=== PATIENT | female | born 1960 | race Caucasian/White ===

== ENCOUNTER 2020-02-05 15:49 | Outpatient (CLI) | payer OTHER, SELFPAY ==
--- NOTE | ~2020-02-05 | XR_ITS ---
EXAMINATION: XR chest 2V DATE: 02/05/2020 16:27 INDICATION: Cough and wheezing and shortness of breath. TECHNIQUE: Frontal and lateral views of the chest were obtained. COMPARISON: Chest 2 views 07/08/17 FINDINGS: The lungs are hyperexpanded. There is scarring at the lung apices. No pleural effusion or p neumothorax. The heart size is normal. IMPRESSION: 1. Chronic scarring at the lung apices. 2. Hyperexpanded lungs, consistent with chronic obstructive pulmonary disease. Reviewed, dictated and finalized at location B. GER APPLICATION
[2020-02-06 14:53] LABS: SARS-CoV-2 RNA PCR Negative
== END 2020-02-05 15:50 | disposition home or self-care (01) ==
LOC: CHSLAB 15:54
PROVIDERS: PCP Internal Medicine; Visit Provider Internal Medicine
DX: R05 Cough (principal); R06.02 Shortness of breath; R06.2 Wheezing; Z20.828 Contact with and (suspected) exposure to other viral communicable diseases
CPT/HCPCS: 71046; 87635; C9803; U0003

== ENCOUNTER 2022-02-18 21:36 | Emergency (ER) | payer OTHER, SELFPAY ==
[2022-02-18] VITALS (8 sets, daily range): BP systolic 109–174; BP diastolic 64–83; PULSE 80–89; RESP 20–30; TEMP 36.6–36.8; O2SAT 87–98
--- NOTE | ~2022-02-18 | XR_ITS ---
EXAMINATION: XR chest 1V portable Exam Date/Time: 02/18/2022 21:50 ENDORSEMENT CLERK HISTORY: sob AFTER MULCHING LEAVES Comparison: 02/05/2020, 07/08/2017, 05/13/2011. RESULT: Lines, tubes, and devices: None. Lungs and pleura: No focal consolidation. No pneumothorax. Biapical pleural scarring, with hilar ret raction. Emphysematous change. Cardiomediastinal silhouette: Stable. Other: No acute osseous or upper abdominal finding. IMPRESSION: No acute cardiopulmonary process. Reviewed, dictated and finalized at location K. RSEMENT CLERK
--- NOTE | 2022-02-18 21:46 | ECG_ITS ---
Measurements Intervals [place] Rate: 83 P: 76 WY: 143 QRS: 80 QRSD: 80 T: 67 QT: 365 QTc: 429 Interpretive Statements SINUS RHYTHM BASELINE ARTIFACT- I, II, III, AVR, AVL, AVF, V1-V6 NORMAL ECG NO PREVIOUS ECG AVAILABLE FOR COMPARISON Electronically Signed On 02-19-2022 8:43:51 TECHNOLOGY APPLICATIONS TEACHER by Ranjit Maier D.O.
--- NOTE | 2022-02-18 21:46 | ED.SOB ---
HPI - SOB/Dyspnea General Chief Complaint: Shortness of Breath/Dyspnea Stated Complaint: trouble breathing Time Seen by Provider: 02/18/22 21:42 Source: patient Mode of arrival: ambulatory History of Present Illness HPI Narrative: 61-year-old female, smoker, intermittent bronchospasm. presents to the ER with -- shortness of breath for the past 2 days. She raked leaves 4 days ago. She had a similar episode of shortness of breath after raking leaves few years ago. Received albuterol which she never used after the acute episode. -- Nonproductive cough. -- hypoxic on presentation with an oxygen saturation 87% on room air No fever or chest pain. MD elicited complaint: shortness of breath and cough Pertinent past history: asthma Onset (ago): day(s) ( started 2 days ago) Context: allergen exposure Timing: constant Severity: severe Exacerbating factors: lying flat Relieving factors: oxygen and rest Associated symptoms: denies other symptoms Treatment prior to arrival: none Related Data Home oxygen amount: none Allergies Allergy/AdvReac Type Severity Reaction Status Date / Time Iodinated Contrast Media Allergy Unknown Verified 02/18/22 21:50 Review of Systems Review of Systems: All systems reviewed & are unremarkable except as noted in HPI and below Constitutional: Constitutional: Reports as per HPI and Reports no additional constitutional complaints Eyes: Eyes: Reports as per HPI and Reports no additional eye complaints ENT: Reports system reviewed and no additional complaints, except as documented and Reports as per HPI Cardiovascular: Cardiovascular: Reports as per HPI and Reports no additional cardiovascular complaints Respiratory: Respiratory: Reports as per HPI, Reports no additional respiratory complaints, Reports cough, Reports dyspnea and Reports wheezing Gastrointestinal: Gastrointestinal: Reports as per HPI and Reports no additional gastrointestinal complaints Genitourinary: Genitourinary: Reports no additional female genitourinary complaints and Reports as per HPI Musculoskeletal: Musculoskeletal: Reports no additional musculoskeletal complaints and Reports as per HPI Integumentary/Breasts: Skin/Breast: Reports system reviewed and no additional complaints, except as docu and Reports as per HPI Neurologic: Reports system reviewed and no additional complaints, except as documented and Reports as per HPI Psychiatric: Psychiatric: Reports no additional psychiatric complaints and Reports as per HPI Endocrine: Endocrine: Reports no additional endocrine complaints and Reports as per HPI Hematologic/Lymphatic: Hematologic/Lymphatic: Reports no additional hematologic/lymphatic complaints and Reports as per HPI Allergic/Immunologic: Allergic/Immunologic: Reports no additional allergic/immunologic complaints and Reports as per HPI Exam Const: General: no acute distress ( in acute respiratory distress.) and ill appearing Nutritional Appearance: thin Limitations: no limitations HENMT: Head: normal to inspection Ears: external ears normal Face/Nose/Sinus: Normal external nose present Face and sinus: normal facial exam Mouth: Yes Normal oral and palatal mucosa present Throat: posterior oropharynx normal Eyes: Conjunctivae: conjunctivae normal Pupils: Equal, round and reactive pupils present EOM: EOMs intact bilaterally Direct Ophthalmoscopy: no photophobia Neck: Neck: normal visual inspection, no lymphadenopathy and no meningeal signs Chest: Other: intercostal retractions Resp: Effort & Inspection: labored and retractions Auscultation: wheezes and diminished lung sounds Cardio: Rate: tachycardic Rhythm: regular rhythm GI: GI Palp: Yes Soft to palpation Auscultation: normal bowel sounds Rectal Exam: normal sphincter tone : General: Yes no CVA tenderness Back/Spine/Pelvis: Back: no CVA tenderness Skin: General skin exam: normal color Rashes: no rashes Wounds: no wounds Neuro: General
[2022-02-18] MEDS: IPRATROPIUM 0.5 MG/ALBUTEROL SULFATE 2.5 MG AMPUL.NEB 3 ML (21:50)
[2022-02-18] MEDS: methylPREDNISolone SOD SUCC 125 MG VIAL IV PUSH (22:01)
[2022-02-18 22:09] LABS: Basophils Absolute Auto 0.12 K/mm3 (0.00-0.10); Basophils Percent Auto 1.3 % (0.0-1.0); Eosinophils Absolute Auto 0.43 K/mm3 (0.02-0.50); Eosinophils Percent Auto 4.7 % (1.0-6.0); Hemoglobin 12.3 g/dL (12.0-15.0); Immature Granulocyte Absolute 0.03 K/mm3 (0.00-0.00); Immature Granulocyte Percent A 0.3 % (0.0-0.0); Lymphocytes Absolute Auto 1.55 K/mm3 (1.10-4.50); Lymphocytes Percent Auto 17.1 % (18.0-42.0); Mean Corpuscular HGB Conc 33.2 g/dL (32.0-36.0); Mean Corpuscular Hemoglobin 31.1 pg (27.0-31.0); Mean Corpuscular Volume 93.7 fL (78.0-102.0); Mean Platelet Volume 9.3 fl (9.2-11.8); Monocytes Absolute Auto 0.77 K/mm3 (0.10-0.90); Monocytes Percent Auto 8.5 % (2.0-11.0); Neutrophils Absolute Auto 6.2 K/mm3 (1.7-7.2); Neutrophils Percent Auto 68.1 % (50.0-70.0); Platelet Count Result 332 K/mm3 (150-420); Red Blood Count 3.95 M/mm3 (4.20-5.40); Red Cell Distribution Width 12.7 % (11.6-14.4); White Blood Count 9.1 K/mm3 (4.8-10.8)
[2022-02-18 22:24] LABS: INR 0.9; Partial Thromboplastin Time 27.3 SEC (23.90-30.70)
[2022-02-18 22:30] LABS: Alanine Aminotransferase 23 U/L (14-59); Albumin Level 3.9 g/dL (3.4-5.0); Alkaline Phosphatase 82 U/L (46-116); Anion Gap 11 mmol/L (8-16); Aspartate Amino Transferase 26 U/L (15-37); Bilirubin,Total 0.3 mg/dL (0.00-1.00); Blood Urea Nitrogen 13 mg/dL (7-18); Carbon Dioxide 27 mmol/L (21-32); Chloride 103 mmol/L (98-108); Estimated CRCL calculation 41 ml/min; Estimated Glomerular Filt Rate 55; Glucose 112 mg/dL (70-99); NT Pro B Type Natriuretic Pept 251 pg/mL (0-125); Osmolality Calculated 293 mOsm/kg (285-295); Potassium 4.1 mmol/L (3.5-5.1); Sodium 141 mmol/L (136-145); Total Protein 7.5 g/dL (6.4-8.2); Troponin I 4.4 ng/L (0.00-60.4)
[2022-02-18 22:48] LABS: Influenza A QL RT-PCR Negative (Negative); Influenza B QL RT-PCR Negative (Negative); SARS-CoV-2 RNA PCR Negative (Negative)
[2022-02-18 22:49] LABS: RSV RNA, RT-PCR Negative (Negative)
[2022-02-18] MEDS: AZITHROMYCIN 250 MG TABLET 500 MG PO (23:04)
[2022-02-18] MEDS: ALBUTEROL SULFATE (*SP) INHALER 2 PUFF INHALATION (23:10)
[2022-02-18] MEDS: IPRATROPIUM 0.5 MG/ALBUTEROL SULFATE 2.5 MG AMPUL.NEB 3 ML INHALATION (23:12)
--- NOTE | 2022-02-19 08:51 | PC.NURSE ---
patient called and her pharmacy is closed [facility] store is not, they were confused last night when she told rn where to send prescriptions. [facility] called [facility] [place] and the pharmacy is open today, RN called in prescriptions and talked with [facility].
== END 2022-02-18 23:22 | disposition home or self-care (01) ==
PROVIDERS: Emergency Provider Internal Medicine Critical Care Medicine; PCP Internal Medicine
DX: J20.9 Acute bronchitis, unspecified (principal); Z20.822 Contact with and (suspected) exposure to COVID-19
CPT/HCPCS: 36415; 71045; 80053; 83880; 84484; 85025; 85610; 85730; 87637; 93005; 94640; 96374; 99284; A9270; J2930

== ENCOUNTER 2022-07-21 05:58 | Emergency (ER) | payer OTHER, SELFPAY ==
[2022-07-21 06:00] VITALS: BP 168/55; PULSE 113; RESP 18; TEMP 37; O2SAT 95
--- NOTE | 2022-07-21 06:24 | ED.ANIMALBIT ---
HPI - Animal Bite General Chief Complaint: Animal Bite Stated Complaint: animal bite History of Present Illness HPI narrative: Pt was feeding wildlife this morning and startled a raccoon and it bit her in the left leg. Pt unsure of last tetanus. Pt denies other injury. Related Data Allergies Allergy/AdvReac Type Severity Reaction Status Date / Time Iodinated Contrast Media Allergy Unknown Verified 02/18/22 21:50 Review of Systems Review of Systems: All systems reviewed & are unremarkable except as noted in HPI and below Exam Const: General: healthy appearing and no acute distress Nutritional Appearance: well nourished Orientation/consciousness: patient oriented x3 Limitations: no limitations Eyes: Pupils: Equal, round and reactive pupils present EOM: EOMs intact bilaterally Neck: Neck: normal visual inspection and no lymphadenopathy Skin: Other: small abrasion or puncture wound to left casarez Neuro: General: patient oriented x3, moves all extremities and no focal motor deficits Cranial nerves: Yes Nystagmus not present Speech: normal speech Extrem: General: normal to inspection and no clubbing, cyanosis or edema Psych: Mental Status: mental status grossly normal Affect: normal affect Attitude: cooperative Course Vital Signs Vital signs: Vital Signs Temperature 98.6 F 07/21/22 06:00 Pulse Rate 113 H 07/21/22 06:00 Respiratory Rate 18 07/21/22 06:00 Blood Pressure 168/55 H 07/21/22 06:00 Pulse Oximetry 95 07/21/22 06:00 Oxygen Delivery Room Air 07/21/22 06:00 Temperature 98.6 F 07/21/22 06:00 Pulse Rate 113 H 07/21/22 06:00 Respiratory Rate 18 07/21/22 06:00 Blood Pressure 168/55 H 07/21/22 06:00 Pulse Oximetry 95 07/21/22 06:00 Oxygen Delivery Room Air 07/21/22 06:00 Discharge Plan Discharge Clinical Impression: Bite by animal Patient Disposition: Home, Self-Care Condition: Stable Instructions: Antibiotic Form, Animal Bite (ED) Prescriptions: No Action azithromycin [Zithromax] 250 mg tablet 250 mg PO DAILY 4 Days Qty: 4 0RF Rx Instructions: start on day 2 of therapy prednisone 20 mg tablet 20 mg PO BID Qty: 10 0RF Follow-up/Referrals: Erin Wall MD [Primary Care Provider] -
[2022-07-21] MEDS: RABIES VACCINE (RABAVERT) 2.5 UNITS VIAL IM (06:41)
[2022-07-21] MEDS: RABIES IMMUNE GLOBULIN/PF 1,500 UNITS/5 ML VIAL 1080 UNITS IM (06:43)
[2022-07-21] MEDS: TETANUS,DIPHTHERIA,AC PERTUSSIS ADULT 0.5 ML (ADACEL) IM (06:43)
--- NOTE | 2022-07-21 06:44 | PC.NURSE ---
Bite cleaned to her left casarez. Rabies vaccine IG administered around bite yelena on left casarez. 1ML left over after administration and was then administered IM to her left deltoid.
[2022-07-21 07:00] VITALS: BP 121/81; PULSE 88; RESP 20; TEMP 36.7; O2SAT 100
== END 2022-07-21 07:03 | disposition home or self-care (01) ==
LOC: CHSED 06:59
PROVIDERS: Emergency Provider Emergency Medicine; PCP Internal Medicine
DX: S81.852A Open bite, left lower leg, initial encounter (principal); Z23 Encounter for immunization; W55.51XA Bitten by raccoon, initial encounter
CPT/HCPCS: 90471; 90472; 90675; 90715; 96372; 99283; 90375

== ENCOUNTER 2022-07-24 08:21 | Outpatient (CLI) | payer OTHER, SELFPAY ==
[2022-07-24] MEDS: RABIES VACCINE (RABAVERT) 2.5 UNITS VIAL IM (08:42)
--- NOTE | 2022-07-24 08:45 | PC.NURSE ---
Patient tolerated IM injection well. Band aid applied to site. Patient educated on s/s of adverse reactions. Patient next inj on Wednesdayjuly 28, patient to come at 1630. Patient left floor ambulatory, denies any further questions.
== END 2022-07-24 08:22 | disposition home or self-care (01) ==
LOC: CHSTREATRM 08:28
PROVIDERS: PCP Internal Medicine; Visit Provider Emergency Medicine
DX: T14.8XXA Other injury of unspecified body region, initial encounter (principal)
CPT/HCPCS: 90471; 90675

== ENCOUNTER 2022-07-28 16:40 | Outpatient (CLI) | payer OTHER, SELFPAY ==
[2022-07-28] MEDS: RABIES VACCINE (RABAVERT) 2.5 UNITS VIAL IM (16:42)
--- NOTE | 2022-07-28 16:51 | PC.NURSE ---
Patient here to receive Rabies Vaccine. Vaccine administered to left buttocks. Patient tolerated well.
== END 2022-07-28 16:41 | disposition home or self-care (01) ==
LOC: CHSTREATRM 07-29 09:04
PROVIDERS: PCP Internal Medicine; Visit Provider Emergency Medicine
DX: T14.8XXA Other injury of unspecified body region, initial encounter (principal)
CPT/HCPCS: 90675; 90471

== ENCOUNTER 2022-08-05 16:18 | Outpatient (CLI) | payer OTHER, SELFPAY ==
[2022-08-05] MEDS: RABIES VACCINE (RABAVERT) 2.5 UNITS VIAL IM (16:33)
== END 2022-08-05 16:19 | disposition home or self-care (01) ==
LOC: CHSTREATRM 16:19
PROVIDERS: PCP Internal Medicine; Visit Provider Emergency Medicine
DX: T14.8XXD Other injury of unspecified body region, subsequent encounter (principal)
CPT/HCPCS: 90471; 90675

== ENCOUNTER 2022-08-19 06:55 | Outpatient (CLI) | payer SELFPAY ==
[2022-09-04 14:29] LABS: Reference Lab Test Result 1.8
== END 2022-08-19 06:56 | disposition home or self-care (01) ==
PROVIDERS: PCP Internal Medicine; Visit Provider Emergency Medicine
DX: Z20.3 Contact with and (suspected) exposure to rabies (principal)
CPT/HCPCS: 36415

== ENCOUNTER 2024-03-03 08:02 | Outpatient (CLI) | payer OTHER, SELFPAY ==
--- NOTE | ~2024-03-03 | CT_ITS ---
CT Scan of the Chest without Contrast: Clinical Indication: Lung cancer screening, nicotine dependence Technique: Contiguous sections were acquired throughout the chest without intravenous contrast. Dose reduction technique was used on this scan by utilizing automated exposure control and iterative recon struction technique. The dose-length product (DLP) was 38.23 mGy-cm. Findings: There is no evidence of any significant mediastinal, hilar or axillary lymphadenopathy. The mediastin al soft tissues appear normal. There is no evidence of pleural or pericardial effusion. There is biapical scarring and probable mild emphysema. Focal area of groundglass opacity present in the posterior right lower lobe (axial image 78), which could reflect focal pneumonitis. Images through the upper abdomen reveal no abnormalities. Impression: Lung RADS 2-S. Benign appearance. 12 month follow-up screening CT advised. Suspected focal pneumonitis in the posterior right lower lobe. Consider short-term follow-up exam to assess for resolution as indicated. Reviewed, dictated and finalized at [facility]. H MAKER Impression: Lung RADS 2-S. Benign appearance. 12 month follow-up screening CT advised. Suspected focal pneumonitis in the posterior right lower lobe. Consider short-t erm follow-up exam to assess for resolution as indicated.
== END 2024-03-03 08:03 | disposition home or self-care (01) ==
LOC: MICIMG 08:03
PROVIDERS: PCP Nurse Practitioner; Visit Provider Nurse Practitioner
DX: Z12.2 Encounter for screening for malignant neoplasm of respiratory organs (principal); Z87.891 Personal history of nicotine dependence
CPT/HCPCS: 71271

== ENCOUNTER 2024-06-12 08:07 | Outpatient (CLI) | payer OTHER, SELFPAY ==
--- NOTE | ~2024-06-12 | CT_ITS ---
CT Scan of the Chest without Contrast: Clinical Indication: Abnormal chest CT Technique: Contiguous sections were acquired throughout the chest without intravenous contrast. Dose reduction technique was used on this scan by utilizing automated exposure control and iterative recon struction technique. The dose-length product (DLP) was 135.70 mGy-cm. COMPARISON: 03/03/2024 Findings: There is no evidence of any significant mediastinal, hilar or axillary lymphadenopathy. The mediastin al soft tissues appear normal. There is no evidence of pleural or pericardial effusion. Peripheral pulmonary consolidations the upper lobes bilaterally similar to prior exam, probable addit ional biapical scarring. There is a new irregular area of consolidation/groundglass opacity in the ri ght lower lobe laterally (axial image 98). There is additional new area of extensive groundglass opac ity and patchy consolidation the peripheral left lower lobe (axial image 1 7 for example). Images through the upper abdomen reveal no abnormalities. Impression: New areas of bibasilar peripheral consolidation and groundglass opacity, left worse than right. Findi ngs are compatible with infectious/inflammatory process, including possibility of organizing pneumoni a. Stable peripheral areas of consolidation at the lung apices with scarring. This could all reflect chr onic scarring versus additional areas of possible chronic organizing pneumonia. Reviewed, dictated and finalized at location . Impression: New areas of bibasilar peripheral consolidation and groundglass opacity, left w orse than right. Findings are compatible with infectious/inflammatory process, including possibility of organizing pneumonia. Stable peripheral areas of consolidation at the lung apices with scarring. This could all reflect chronic scarring versus additional areas of possible chronic organizing pneumonia.
== END 2024-06-12 08:08 | disposition home or self-care (01) ==
LOC: MICIMG 08:09
PROVIDERS: PCP Nurse Practitioner; Visit Provider Nurse Practitioner
DX: R91.8 Other nonspecific abnormal finding of lung field (principal)
CPT/HCPCS: 71250